=== PATIENT | female | born 1965 | race Caucasian/White ===

== ENCOUNTER → 2021-09-23 | Outpatient (CLI) | payer BC ==
[2021-09-23 14:42] LABS: FOLATE 18.1 NG/ML; IMMUNOGLOBULIN A 96.8 MG/DL (70-400); IMMUNOGLOBULIN M 95.8 MG/DL (40-230)
== END ==
LOC: M PLALAB 10:03
PROVIDERS: ATTEND Internal Medicine Infectious Disease
DX: B99.9 Unspecified infectious disease (principal); R20.0 Anesthesia of skin; U07.1 COVID-19